=== PATIENT | female | born 1970 | race Two or more races ===

== ENCOUNTER 2024-08-03 05:25 | Day surgery (SDC) | payer OTHER ==
[2024-07-31 13:17] VITALS: BP 104/73
[~2024-08-03] VITALS: Ht 170.2 cm; Wt 49.9 kg
[2024-08-03] MEDS ORDERED: POVIDONE-IODINE 118 ML BOTT TOP ONE (08:30)
[2024-08-03] MEDS ORDERED: RINGERS SOLUTION,LACTATED 1,000 ML IV SCH (09:00)
[2024-08-03] MEDS ORDERED: KETOROLAC TROMETHAMINE 30 MG VIAL IV STA (09:01)
[2024-08-03] MEDS ORDERED: MORPHINE SULFATE 4 MG/ML VIAL IV ONE (09:15)
[2024-08-03] MEDS ORDERED: KETOROLAC TROMETHAMINE 30 MG VIAL IV ONE (09:45)
[2024-08-03] MEDS ORDERED: KETOROLAC TROMETHAMINE 30 MG VIAL ONE (09:52)
== END 2024-08-03 11:30 | disposition home or self-care (01) ==
LOC: CIR.AMB 05:25
PROVIDERS: ATTEND Student in an Organized Health Care Education/Training Program
DX: N84.0 Polyp of corpus uteri (principal)